=== PATIENT | female | born 1945 | race Caucasian/White ===

== ENCOUNTER → 2018-10-01 | Outpatient (CLI) | payer MEDICARE ==
[2013-10-20 15:00] VITALS: BP 122/67
[~2018-10-01] MED LIST: ALBU8.5H6 INH; AMLO10TA8 PO; HYDR50TA6 PO; LEVO250T25 PO; MONT4GRA2 PO; PRAV20TA2 PO
[2018-10-01 15:40] LABS: CALCIUM 9.6 mg/dL (8.5-10.1); CREATININE 1.2 mg/dL (0.6-1.0); GFR 43.9
[2018-10-02 04:12] LABS: HEMOGLOBIN A1C 5.9 % (4.8-5.6)
== END | disposition home or self-care (01) ==
LOC: LAB 14:51
PROVIDERS: ATTEND Physician Assistant Surgical
DX: R73.01 Impaired fasting glucose (principal); N18.9 Chronic kidney disease, unspecified
CPT/HCPCS: 36415; 80048; 83036